=== PATIENT | female | born 1975 | race Caucasian/White ===

== ENCOUNTER → 2016-11-30 | Outpatient (CLI) | payer OTHER ==
[~2016-11-30] MED LIST: ACEB200C PO; ALLO100T PO; ASPI81TA28 PO; BENA1TAB19 PO; CALC600T9 PO; CYCL5TAB PO; FRS/40 PO; GABA1CAP5 PO; LINA1TAB PO; LIRA18IN SC; METF-384 PO; OMEP20TA PO; TRAZ1TAB52 PO
[2016-11-30 11:18] LABS: BASO % 0.2 %; BASO ABS # 0.02 K/uL (0-0.2); COMPLETE YES; EOS % 1.9 %; HEMATOCRIT 40.8 % (37-47); IG% 0.3 %; LYMPH % 17.6 %; LYMPH ABS # 1.96 K/uL (1.2-3.4); MEAN CORPUSCULAR HEMOGLOBIN 25.9 pg (25-34); MEAN CORPUSCULAR HGB CONC 32.4 g/dl (32-36); MEAN PLATELET VOLUME 10.7 fL (7.4-10.4); MONO % 4.1 %; NEUT % 75.9 %; PLATELET COUNT 322 K/uL (130-400); WHITE BLOOD COUNT 11.14 K/uL (4.8-10.8)
[2016-11-30 11:33] LABS: ALKALINE PHOSPHATASE 101 U/L (45-117); ALT/SGPT 42 U/L (12-78); AST/SGOT 39 U/L (15-37); BLOOD UREA NITROGEN 16 mg/dl (7-18); BUN/CREATININE RATIO 13.5 (10-20); CALCIUM 8.5 mg/dl (8.5-10.1); CARBON DIOXIDE 26 mmol/L (21-32); CHLORIDE 101 mmol/L (98-107); GLUCOSE 227 mg/dl (70-99); POTASSIUM 3.8 mmol/L (3.5-5.1); SODIUM 138 mmol/L (136-145)
[2016-11-30 11:34] LABS: ALB/GLOB RATIO 0.8 (0.9-2); C-REACTIVE PROTEIN 1.52 mg/dl (0-0.29)
== END | disposition home or self-care (01) ==
LOC: C.LAB1850 10:07
PROVIDERS: ATTEND Internal Medicine
DX: R74.8 Abnormal levels of other serum enzymes (principal)

== ENCOUNTER → 2016-12-28 | Day surgery (SDC) | payer OTHER ==
[2016-12-21 08:36] VITALS: BMI 44.0
[~2016-12-28] VITALS: Ht 162.6 cm; Wt 115.9 kg
[~2016-12-28] MED LIST changes: +LIDOCAINE HCL 2% 2 ML VIAL (20MG/ML) ONE; +PROPOFOL IV EMULSION 10 MG/ML 20 ML VIAL IV ONE; +SODIUM CHLORIDE 0.9% 500ML 500 ML IV ONE
[2016-12-28 11:58] VITALS: TEMP 37.3
[2016-12-28 11:59] VITALS: Ht 162.6 cm; Wt 115.9 kg
--- NOTE | 2016-12-28 12:54 | Endo History and Physical ---
History & Physical Date of Service: Dec 28, 2016. Chief Complaint: DIARRHEA AND HISTORY OF POLYPS Referring Physician: ROSA UP- ROSA CONWAY History of Present Illness 41 yo CF who presents for colonoscopy secondary to diarrhea. Past Surgical History Hx Cardiac Surgery: No Hx Internal Defibrillator: No Hx Pacemaker: No Hx Abdominal Surgery: Yes ( X2, JOSE MIGUEL, OVARIAN CYSTECTOMY) Hx of Implantable Prosthesis: No Hx Post-Op Nausea and Vomiting: No Hx Cancer Surgery: No Hx Thoracic Surgery: No Hx Orthopedic: Yes (LT KNEE SURGERY X3, LEG MUSCLE BIOPSY) Hx Urinary Tract Surgery: No Family History Polyp, IBD Social History Smoking Status: Never Smoker Hx Substance Use: No Hx Alcohol Use: No Allergies Coded Allergies: Copper (Unverified Allergy, Severe, KIDNEY FUNCTION DECREASED TO 25%, 12/28) Cefuroxime (Verified Allergy, Unknown, N/V, DIARRHEA, RASH, 12/21/16) Erythromycin (Verified Allergy, Unknown, RASH, 12/21/16) Iron (Verified Allergy, Unknown, N/V, DIARRHEA, RASH, 12/21/16) ONLY WITH IV IRON Nitrofurantoin (Verified Allergy, Unknown, RASH, 12/21/16) Penicillins (Verified Allergy, Unknown, REDNESS AND SWELLING, 12/21/16) Sulfa Drugs (Verified Allergy, Unknown, ANAPHYLAXIS, 12/21/16) Tetracyclines (Verified Allergy, Unknown, GI UPSET, 12/21/16) Uncoded Allergies: BEANS (Allergy, Unknown, ANAPHYLAXIS, 12/21/16) Current Medications Reported Home Medications Medications Dose Route/Sig Max Daily Dose Days Date Category Dose Instructions Calcium + D (Calcium Carbonate-Vitamin D) 1 Tab Tab 1 Tab PO BID 12/21/16 Reported Aspirin Ec (Aspirin) 81 Mg Tab 81 Mg PO QAM 12/21/16 Reported Lotensin (Benazepril HCl) 40 Mg Tab 40 Mg PO QAM 12/21/16 Reported Omeprazole 20 Mg Tab 40 Mg PO QAM 12/21/16 Reported Lasix (Furosemide) 40 Mg Tab 40 Mg PO QAM 12/21/16 Reported Sectral Cap (Acebutolol HCl) 200 Mg Cap 400 Mg PO BID 12/21/16 Reported Neurontin (Gabapentin) 400 Mg Cap 400 Mg PO TID 12/21/16 Reported Flexeril (Cyclobenzaprine Hcl) 5 Mg Tab 5 Mg PO HS 12/21/16 Reported PRN Desyrel (Trazodone Hcl) 150 Mg Tab 150 Mg PO HS 12/21/16 Reported Zyloprim (Allopurinol) 100 Mg Tab 100 Mg PO QAM 12/21/16 Reported Victoza (Liraglutide) 18 Mg/3 Ml Inj 1.8 Mcg SC HS 12/21/16 Reported Tradjenta (Linagliptin) 5 Mg Tab 1 Tab PO QAM 12/21/16 Reported Glucophage (Metformin Hcl) 1,000 Mg Tab 1,000 Mg PO BID 12/21/16 Reported Vital Signs Weight (Kilograms): 115.91 Height (Feet): 5 Height (Inches): 4 Date Time Temp Pulse Resp B/P Pulse Ox O2 Delivery O2 Flow Rate FiO2 12/28/16 11:58 37.3 81 24 142/78 97 Room Air Physical Exam General Appearance: WD/WN, no apparent distress Respiratory/Chest: Auscultation: breath sounds normal Cardiovascular: Heart Auscultation: RRR Abdomen: Bowel Sounds: normal Inspection & Palpation: soft, non-distended, no tenderness, guarding & rebound Assessment and Plan Assessment: 41 yo CF who presents for colonoscopy secondary to diarrhea. Plan: Proceed with Colonoscopy.
--- NOTE | 2016-12-28 13:16 | Discharge Instructions ---
Endoscopy Patient Instructions Date / Procedure(s) Performed Dec 28, 2016. Colonoscopy Allergy Information Coded Allergies: Copper (Unverified Allergy, Severe, KIDNEY FUNCTION DECREASED TO 25%, 12/28) Cefuroxime (Verified Allergy, Unknown, N/V, DIARRHEA, RASH, 12/21/16) Erythromycin (Verified Allergy, Unknown, RASH, 12/21/16) Iron (Verified Allergy, Unknown, N/V, DIARRHEA, RASH, 12/21/16) ONLY WITH IV IRON Nitrofurantoin (Verified Allergy, Unknown, RASH, 12/21/16) Penicillins (Verified Allergy, Unknown, REDNESS AND SWELLING, 12/21/16) Sulfa Drugs (Verified Allergy, Unknown, ANAPHYLAXIS, 12/21/16) Tetracyclines (Verified Allergy, Unknown, GI UPSET, 12/21/16) Uncoded Allergies: BEANS (Allergy, Unknown, ANAPHYLAXIS, 12/21/16) Discharge Date / Findings Dec 28, 2016. Diverticulosis Random colon biopsies Stool aspirate Medication Instructions Stopped Medication(s): METFORMIN LAST DOSE 12/25/16 LASIX LAST DOSE 12/27/16 OK to resume all medications today as prescribed Reported Home Medications Medications Dose Route/Sig Max Daily Dose Days Date Category Dose Instructions Calcium + D (Calcium Carbonate-Vitamin D) 1 Tab Tab 1 Tab PO BID 12/21/16 Reported Aspirin Ec (Aspirin) 81 Mg Tab 81 Mg PO QAM 12/21/16 Reported Lotensin (Benazepril HCl) 40 Mg Tab 40 Mg PO QAM 12/21/16 Reported Omeprazole 20 Mg Tab 40 Mg PO QAM 12/21/16 Reported Lasix (Furosemide) 40 Mg Tab 40 Mg PO QAM 12/21/16 Reported Sectral Cap (Acebutolol HCl) 200 Mg Cap 400 Mg PO BID 12/21/16 Reported Neurontin (Gabapentin) 400 Mg Cap 400 Mg PO TID 12/21/16 Reported Flexeril (Cyclobenzaprine Hcl) 5 Mg Tab 5 Mg PO HS 12/21/16 Reported PRN Desyrel (Trazodone Hcl) 150 Mg Tab 150 Mg PO HS 12/21/16 Reported Zyloprim (Allopurinol) 100 Mg Tab 100 Mg PO QAM 12/21/16 Reported Victoza (Liraglutide) 18 Mg/3 Ml Inj 1.8 Mcg SC HS 2/16/17 Reported Tradjenta (Linagliptin) 5 Mg Tab 1 Tab PO QAM 12/21/16 Reported Glucophage (Metformin Hcl) 1,000 Mg Tab 1,000 Mg PO BID 12/21/16 Reported Provider Instructions Activity Restrictions - No exercising or heavy lifting for 24 hours. - Do not drink alcohol the day of the procedure. - Do not drive a car or operate machinery until the day after the procedure. - Do not make any important decisions or sign important papers in 24 hours after the procedure. Following Day: - Return to full activity which may include returning to work/school. Diet Start your diet with liquids and light foods (jello, soup, juice, toast). Then eat your usual diet if not nauseated. Treatment For Common After Affects For mild abdominal pain, bloating, or excessive gas: - Rest - Eat lightly - Lie on right side Follow-Up Information Follow-up with ROSA UP- ROSA CONWAY as scheduled Anesthesia Information What You Should Know You have had a procedure that required some medicine to reduce anxiety and discomfort. This treatment is called moderate sedation. After receiving the treatment, you may be sleepy, but you will be able to breathe on your own. The effects of the treatment may last for several hours. Follow these instructions along with Activity/Diet recommendations noted above: * Do NOT do anything where dizziness or clumsiness would be dangerous. * Rest quietly at home today, then you can be up and about tomorrow. * Have a responsible person stay with you the rest of today. * You may have had an I.V. today. If so, you may take the dressing off later today. Recommendations Call your doctor if: * Trouble breathing * Continuous vomiting for more than 24 hours * Temperature above 101 degrees * Severe abdominal pain or bloating * Pain not relieved by pain medicine ordered * There is increased drainage or redness from any incision * A large amount of rectal bleeding greater than 2-3 tablespoons. (If you had a polyp/s removed or have hemorrhoids, a small amount of blood - from the rectum is to be expected.) * You have any unanswered questions or concerns. IN THE EVENT OF A SERIOUS EMERGENCY, GO TO THE NEAREST EMERGENCY ROOM Your discharge instructions were prepared by provider Iván Navarro. Patient Instructions Signature Page Dariela Frey Patient (or Guardian) Signature/Date: I have read and understand the instructions given to me by my caregivers. Caregiver/RN/Doctor Signature/Date: The above-named patient and/or guardian has received patient instructions on this date. + Original Patient Signature Page (only) stays with chart. Please make copy for patient.
--- NOTE | 2016-12-28 13:56 | Anesthesiology Progress Note ---
Anesthesia Post Op Note Date & Time Dec 28, 2016 at 13:57 Vital Signs Pain Intensity: 2 Vital Signs Past 12 Hours Date Time Temp Pulse Resp B/P Pulse Ox O2 Delivery O2 Flow Rate FiO2 12/28/16 13:45 71 18 108/69 97 Room Air 12/28/16 11:58 37.3 81 24 142/78 97 Room Air Notes Mental Status: alert / awake / arousable, participated in evaluation Pt Amnestic to Procedure: Yes Nausea / Vomiting: adequately controlled Pain: adequately controlled Airway Patency, RR, SpO2: stable & adequate BP & HR: stable & adequate Hydration State: stable & adequate Anesthetic Complications: no major complications apparent
--- NOTE | 2016-12-28 13:59 | GI REPORT ---
Procedure Date: 12/28/2016 1:04 PM Procedure: Colonoscopy Indications: Chronic diarrhea Medicines: Monitored Anesthesia Care Complications: No immediate complications. Estimated Blood Loss: Estimated blood loss: none. Procedure: Pre-Anesthesia Assessment: - Prior to the procedure, a History and Physical was performed, and patient medications and allergies were reviewed. The patient's tolerance of previous anesthesia was also reviewed. The risks and benefits of the procedure and the sedation options and risks were discussed with the patient. All questions were answered, and informed consent was obtained. Prior Anticoagulants: The patient has taken aspirin, last dose was 1 day prior to procedure. ASA Grade Assessment: II - A patient with mild systemic disease. After reviewing the risks and benefits, the patient was deemed in satisfactory condition to undergo the procedure. After I obtained informed consent, the scope was passed under direct vision. Throughout the procedure, the patient's blood pressure, pulse, and oxygen saturations were monitored continuously. The scope was introduced through the anus and advanced to the terminal ileum. The colonoscopy was performed without difficulty. The patient tolerated the procedure well. The quality of the bowel preparation was good. The terminal ileum, ileocecal valve, appendiceal orifice, and rectum were photographed. Findings: Multiple small-mouthed diverticula were found in the sigmoid colon. Several random biopsies were obtained with cold forceps for histology in the entire colon. Fluid aspiration for cytology was performed in the entire colon. Impression: - Diverticulosis in the sigmoid colon. - Several random biopsies were obtained in the entire colon. - Fluid aspiration was performed. Recommendation: - Resume previous diet. - Continue present medications. - Repeat colonoscopy for surveillance based on pathology results. - Return to primary care physician as previously scheduled. Iván Navarro, 12/28/2016 1:59:20 PM This report has been signed electronically. Note Initiated On: 12/28/2016 1:04 PM I attest to the content of the Intraoperative Record and orders documented therein, exceptions below
[2016-12-28 14:10] VITALS: BP 127/88; PULSE 73; O2SAT 71
== END | disposition home or self-care (01) ==
LOC: C.GI 11:30
PROVIDERS: ATTEND Internal Medicine
DX: R19.7 Diarrhea, unspecified (principal); K57.30 Diverticulosis of large intestine without perforation or abscess without bleeding; Z98.890 Other specified postprocedural states; Z83.79 Family history of other diseases of the digestive system; Z79.82 Long term (current) use of aspirin; Z88.0 Allergy status to penicillin; Z88.1 Allergy status to other antibiotic agents; Z88.2 Allergy status to sulfonamides; Z88.5 Allergy status to narcotic agent; Z88.8 Allergy status to other drugs, medicaments and biological substances